=== PATIENT | female | born 1965 | race Caucasian/White ===

== ENCOUNTER 2018-11-15 02:43 | Emergency (ER) | payer OTHER ==
[~2018-11-15] VITALS: Ht 162.6 cm; Wt 77.1 kg
--- NOTE | 2018-11-15 03:09 | NUR ---
Dr. Lin at bedside for MSE.
[2018-11-15] MEDS ORDERED: MORPHINE SULFATE 4 MG/1 ML DISP.SYRIN IM ONE ×2 (03:15→04:45)
[2018-11-15] MEDS ORDERED: ONDANSETRON ODT 4 MG TAB.RAPDIS SL ONE (03:15)
[2018-11-15] MEDS ORDERED: AMOXICILLIN TRIHYDRATE 250 MG CAPSULE PO ONE (03:15)
[2018-11-15] MEDS ORDERED: AMOXICILLIN TRIHYDRATE 250 MG CAPSULE ONE (03:16)
[2018-11-15] MEDS ORDERED: MORPHINE SULFATE 4 MG/1 ML DISP.SYRIN ONE ×2 (03:17→04:35)
[2018-11-15] MEDS ORDERED: ONDANSETRON ODT 4 MG TAB.RAPDIS ONE (03:17)
[2018-11-15] MEDS ORDERED: CLONIDINE HCL 0.2 MG TABLET ONE (03:58)
[2018-11-15] MEDS ORDERED: CLONIDINE HCL 0.2 MG TABLET PO ONE (04:00)
--- NOTE | 2018-11-15 04:00 | NUR ---
Pt crying, states she's still in a lot of pain, blood pressure is still high 198/136. MD notified.
--- NOTE | 2018-11-15 05:37 | NUR ---
Patient discharged to home in stable conditon. Written and verbal after care instructions given. Patient verbalizes understanding of instructions. Patient ambulated out of ER with steady gait, no acute signs of distress, VSS, all belongings taken, to be driven home by son via private vehicle.
[2018-11-15 05:38] VITALS: BP 174/125
== END 2018-11-15 05:38 | disposition home or self-care (01) ==
LOC: ER 02:50
DX: K08.89 Other specified disorders of teeth and supporting structures (principal); I10 Essential (primary) hypertension; F17.200 Nicotine dependence, unspecified, uncomplicated; Z88.6 Allergy status to analgesic agent
CPT/HCPCS: 96372 ×2; 99284; J2270 ×2; A4663; Q0162

== ENCOUNTER 2020-01-07 03:29 | Emergency (ER) | payer OTHER ==
[~2020-01-07] VITALS: Ht 165.1 cm; Wt 77.1 kg
--- NOTE | 2020-01-07 03:50 | NUR ---
Patient ambulating with steady gait. A&O x4. c/o headache 10/10 on the pain scale. pain does not radiate per patient. Patient was seen at [facility] for flu like symptoms and DELGADO. patient received morphine and ativan with little to no help per patient. Breathing even and unlabored. Denies any SOB. Speech is clear and able to make needs known / follow commands. Denies any / GI distress
--- NOTE | 2020-01-07 03:55 | NUR ---
Dr. Wallace at bedside for MSE
[2020-01-07] MEDS ORDERED: HYDROMORPHONE 1 MG/1 ML DISP.SYRIN IM ONE (04:00)
[2020-01-07] MEDS ORDERED: ONDANSETRON 4 MG/2 ML VIAL IM ONE (04:00)
[2020-01-07] MEDS ORDERED: ONDANSETRON 4 MG/2 ML VIAL ONE (04:04)
[2020-01-07] MEDS ORDERED: HYDROMORPHONE 2 MG/1 ML DISP.SYRIN ONE (04:04)
--- NOTE | 2020-01-07 04:15 | NUR ---
Patient discharged to home in stable conditon. Written and verbal after care instructions given. Patient verbalizes understanding of instructions. Patient ambulating with steady gait. Son at bedside to drive patient home
[2020-01-07 04:26] VITALS: BP 136/89
[2020-01-07] MEDS ORDERED: AZIT100S PO (09:46)
[2020-01-07] MEDS ORDERED: METH4TAB3 PO (09:46)
[2020-01-07] MEDS ORDERED: AZIT250T13 PO (09:46)
[2020-01-07] MEDS ORDERED: ALBU8HFA4 (09:46)
[2020-01-07] MEDS ORDERED: OXYC-128 PO (09:47)
[2020-01-07] MEDS ORDERED: BENZ-13 PO (09:47)
[2020-01-07] MEDS ORDERED: ONDA4TAB5 PO (09:47)
[2020-01-10] MEDS ORDERED: LISI10TA5 PO (17:34)
[2020-01-11] MEDS ORDERED: LISI-603 PO (10:56)
[2020-01-11] MEDS ORDERED: AZIT500T PO (10:56)
[2020-01-11] MEDS ORDERED: AMOX875T2 PO (10:56)
[2020-01-11] MEDS ORDERED: ALBU18HF2 INH (10:56)
[2020-01-11] MEDS ORDERED: PRED20TA PO (10:56)
== END 2020-01-07 04:15 | disposition home or self-care (01) ==
LOC: ER 03:32
DX: R51 Headache (principal); Z88.6 Allergy status to analgesic agent; F17.200 Nicotine dependence, unspecified, uncomplicated
CPT/HCPCS: 96372 ×2; 99284; J1170; J2405; A4663

== ENCOUNTER 2020-01-07 09:38 | Emergency (ER) | payer OTHER ==
[~2020-01-07] VITALS: Ht 165.1 cm; Wt 77.1 kg
[2020-01-07] MEDS ORDERED: AZIT250T13 PO (09:46)
[2020-01-07] MEDS ORDERED: METH4TAB3 PO (09:46)
[2020-01-07] MEDS ORDERED: AZIT100S PO (09:46)
[2020-01-07] MEDS ORDERED: ALBU8HFA4 (09:46)
[2020-01-07] MEDS ORDERED: ONDA4TAB5 PO (09:47)
[2020-01-07] MEDS ORDERED: OXYC-128 PO (09:47)
[2020-01-07] MEDS ORDERED: BENZ-13 PO (09:47)
--- NOTE | 2020-01-07 09:54 | NUR ---
PATIENT ON A MONITOR. SHE IS AWAKE AND ALERT. SHE IS NAUSEATED AND STATES SHE HAS A HEADACHE. SHE HAS A FREQUENT COUGH.
[2020-01-07] MEDS ORDERED: ALBUTEROL SULFATE 2.5 MG/3 ML NEBU ONE (10:28)
[2020-01-07] MEDS ORDERED: diphenhydrAMINE 50 MG/1 ML VIAL IV ONE (10:30)
[2020-01-07] MEDS ORDERED: IV NORMAL SALINE 1000 ML BAG IV ONE (10:30)
[2020-01-07] MEDS ORDERED: CEFTRIAXONE 1 G in IV DEXTROSE 5% 50 ML IV ONE (10:30)
[2020-01-07] MEDS ORDERED: PROCHLORPERAZINE EDISYLATE 10 MG/2 ML VIAL IV ONE (10:30)
[2020-01-07] MEDS ORDERED: ALBUTEROL SULFATE 2.5 MG/3 ML NEBU NEB ONE (10:30)
[2020-01-07 10:37] LABS: BASOPHILS # (AUTO) 0.1 K/uL (0.0-8.0); BASOPHILS % (AUTO) 1.3 % (0.0-2.0); EOSINOPHILS % (AUTO) 0.1 % (0.0-7.0); HEMATOCRIT 32.5 % (31.2-41.9); HEMOGLOBIN 10.3 g/dL (10.9-14.3); LYMPHOCYTES # (AUTO) 0.7 K/uL (20.0-40.0); LYMPHOCYTES % (AUTO) 7.1 % (20.5-51.5); MEAN CORPUSCULAR HEMOGLOBIN 23.5 uug (24.7-32.8); MEAN CORPUSCULAR HGB CONC 32 g/dL (32.3-35.6); MEAN CORPUSCULAR VOLUME 74.4 fL (75.5-95.3); MONOCYTES # (AUTO) 0.3 K/uL (2.0-10.0); MONOCYTES % (AUTO) 3.4 % (0.0-11.0); NEUTROPHILS # (AUTO) 8.5 K/uL (1.8-8.9); NEUTROPHILS % (AUTO) 88.1 % (38.5-71.5); PLATELET COUNT (AUTO) 307 K/uL (179-408); RED BLOOD CELL COUNT(AUTO) 4.36 MIL/uL (3.63-4.92); WHITE BLOOD COUNT (AUTO) 9.6 K/uL (3.8-11.8)
[2020-01-07] MEDS ORDERED: PROCHLORPERAZINE EDISYLATE 10 MG/2 ML VIAL ONE (10:37)
[2020-01-07] MEDS ORDERED: CEFTRIAXONE /D5W 50ML IVPB **ER PYXIS IV ONE (10:38)
[2020-01-07] MEDS ORDERED: diphenhydrAMINE 50 MG/1 ML VIAL ONE (10:38)
[2020-01-07 10:50] LABS: CREATININE 0.9 mg/dL (0.6-1.3); POTASSIUM 4.5 mmol/L (3.5-5.1)
[2020-01-07 11:02] LABS: BILIRUBIN,DIRECT 0.1 mg/dL (0.0-0.2); BILIRUBIN,TOTAL 0.2 mg/dL (0.2-1.0); TOTAL PROTEIN, SERUM 8.7 g/dL (6.4-8.2)
--- NOTE | 2020-01-07 11:24 | NUR ---
PATIENT IS SLEEPY BUT [place]. NO COUGHING OR NAUSEA AT THIS MOMENT,
--- NOTE | 2020-01-07 12:10 | NUR ---
PATIENT STATES SHE FEELS BETTER AND COUGHING AND NAUSEA HAVE DIMINISHED.
--- NOTE | 2020-01-07 12:26 | NUR ---
IV removed. Catheter intact and site benign. Pressure and 4x4 gauze applied to site. No bleeding noted.
--- NOTE | 2020-01-07 12:27 | NUR ---
DC AND F/U INSTRUCTIONS GIVEN AND EXPLAINED TO PATIENT AND SON WHO STATE THEY UNDERSTAND ALL INSTRUCTIONS
[2020-01-10] MEDS ORDERED: LISI10TA5 PO (17:34)
[2020-01-11] MEDS ORDERED: AMOX875T2 PO (10:56)
[2020-01-11] MEDS ORDERED: PRED20TA PO (10:56)
[2020-01-11] MEDS ORDERED: LISI-603 PO (10:56)
[2020-01-11] MEDS ORDERED: ALBU18HF2 INH (10:56)
[2020-01-11] MEDS ORDERED: AZIT500T PO (10:56)
== END 2020-01-07 12:32 | disposition home or self-care (01) ==
LOC: ER 09:38
DX: R11.2 Nausea with vomiting, unspecified (principal); J20.9 Acute bronchitis, unspecified; F17.200 Nicotine dependence, unspecified, uncomplicated; Z88.6 Allergy status to analgesic agent; Z79.899 Other long term (current) drug therapy
CPT/HCPCS: 36415; 80048; 80076; 83690; 85025; 87400; 94640; 96361; 96365; 96375; 99283; J0696; J0780; J1200; A4663; J7030

== ENCOUNTER 2020-01-08 23:39 | Inpatient (IN) | payer OTHER ==
[~2020-01-08] VITALS: Ht 165.1 cm; Wt 92.1 kg
--- NOTE | 2020-01-08 23:50 | NUR ---
Patient walked into ER with son c/o SOB,DELGADO and genaralized weakness for several days. Patient wheezing upon arrival. Placed in 4A.
[2020-01-09] MEDS ORDERED: NITROGLYCERIN OINT 1 GM PACKET TP ONE ×2 (00:15→00:21)
[2020-01-09] MEDS ORDERED: FUROSEMIDE 40 MG/4 ML VIAL IV ONE (00:15)
[2020-01-09] MEDS ORDERED: FUROSEMIDE 40 MG/4 ML VIAL ONE (00:21)
[2020-01-09 00:36] LABS: BASOPHILS # (AUTO) 0.1 K/uL (0.0-8.0); BASOPHILS % (AUTO) 0.6 % (0.0-2.0); EOSINOPHILS % (AUTO) 0.2 % (0.0-7.0); HEMATOCRIT 33.1 % (31.2-41.9); HEMOGLOBIN 10.6 g/dL (10.9-14.3); LYMPHOCYTES # (AUTO) 1.7 K/uL (20.0-40.0); LYMPHOCYTES % (AUTO) 11.9 % (20.5-51.5); MEAN CORPUSCULAR HEMOGLOBIN 23.8 uug (24.7-32.8); MEAN CORPUSCULAR HGB CONC 32 g/dL (32.3-35.6); MEAN CORPUSCULAR VOLUME 74.6 fL (75.5-95.3); MONOCYTES % (AUTO) 7.1 % (0.0-11.0); NEUTROPHILS # (AUTO) 11.3 K/uL (1.8-8.9); NEUTROPHILS % (AUTO) 80.2 % (38.5-71.5); PLATELET COUNT (AUTO) 352 K/uL (179-408); RED BLOOD CELL COUNT(AUTO) 4.44 MIL/uL (3.63-4.92); WHITE BLOOD COUNT (AUTO) 14.1 K/uL (3.8-11.8)
[2020-01-09] MEDS ORDERED: MORPHINE SULFATE 4 MG/1 ML DISP.SYRIN IV ONE (00:45)
[2020-01-09] MEDS ORDERED: ONDANSETRON 4 MG/2 ML VIAL IV ONE (00:45)
--- NOTE | 2020-01-09 01:00 | NUR ---
Patient anxious, crying and worried about elevated BP. Allowed patient to vent fears. Closely monitoring BP.
[2020-01-09 01:11] LABS: BAND % (MANUAL) 3 % (0-10); BASOPHILS % (MANUAL) 0 % (0-2); EOSINOPHILS % (MANUAL) 3 % (0-8); LYMPHOCYTES % (MANUAL) 7 % (20-40); MONOCYTES % (MANUAL) 7 % (2-10); NEUTROPHILS % (MANUAL) 80 % (42-75)
[2020-01-09] MEDS ORDERED: hydrALAZINE HCL 20 MG/1 ML VIAL ONE (01:13)
[2020-01-09] MEDS ORDERED: MORPHINE SULFATE 4 MG/1 ML DISP.SYRIN ONE (01:13)
[2020-01-09] MEDS ORDERED: ONDANSETRON 4 MG/2 ML VIAL ONE (01:13)
[2020-01-09] MEDS ORDERED: hydrALAZINE HCL 20 MG/1 ML VIAL IV ONE (01:15)
--- NOTE | 2020-01-09 02:03 | NUR ---
Called [facility] to chance Barrett NP.
[2020-01-09] MEDS ORDERED: diphenhydrAMINE 50 MG/1 ML VIAL IV ONE (02:15)
[2020-01-09] MEDS ORDERED: METOCLOPRAMIDE HCL 10 MG/2 ML VIAL IV ONE (02:15)
[2020-01-09] MEDS ORDERED: diphenhydrAMINE 50 MG/1 ML VIAL ONE (02:17)
[2020-01-09] MEDS ORDERED: METOCLOPRAMIDE HCL 10 MG/2 ML VIAL ONE (02:17)
[2020-01-09] MEDS ORDERED: ONDANSETRON 4 MG/2 ML VIAL IV PRN ×2 (02:30→08:00)
[2020-01-09] MEDS ORDERED: HYDROCODONE/APAP 5-325MG TABLET PO PRN (02:30)
[2020-01-09] MEDS ORDERED: MAGNESIUM HYDROXIDE 30 ML LIQUID UDC PO PRN (02:30)
[2020-01-09] MEDS ORDERED: ALBUTEROL SULFATE 2.5 MG/3 ML NEBU NEB PRN (02:30)
[2020-01-09] MEDS ORDERED: ACETAMINOPHEN 325 MG TABLET PO PRN (02:30)
[2020-01-09] MEDS ORDERED: CEFTRIAXONE 1 G in IV DEXTROSE 5% 50 ML IV SCH (02:30)
--- NOTE | 2020-01-09 03:20 | NUR ---
Transfered to 3rd floor Tele.
[2020-01-09] MEDS ORDERED: CEFTRIAXONE 1 G VIAL ONE (03:55)
[2020-01-09 04:18] VITALS: BP 150/93
[2020-01-09] MEDS: MORPHINE SULFATE 2 MG/1 ML DISP.SYRIN IV PRN ×2 (04:31→11:00)
[2020-01-09 06:56] LABS: BILIRUBIN,DIRECT 0.1 mg/dL (0.0-0.2); BILIRUBIN,TOTAL 0.3 mg/dL (0.2-1.0); CREATININE 0.9 mg/dL (0.6-1.3); MAGNESIUM 1.8 mg/dL (1.8-2.4); PHOSPHOROUS 3.4 mg/dL (2.5-4.9); POTASSIUM 3.7 mmol/L (3.5-5.1); TOTAL PROTEIN, SERUM 8.4 g/dL (6.4-8.2)
[2020-01-09 06:57] LABS: THYROID STIMULATING HORMONE 1.592 mIU/mL (0.358-3.740)
[2020-01-09 07:06] LABS: BASOPHILS # (AUTO) 0.1 K/uL (0.0-8.0); BASOPHILS % (AUTO) 0.5 % (0.0-2.0); HEMATOCRIT 31.8 % (31.2-41.9); HEMOGLOBIN 9.8 g/dL (10.9-14.3); LYMPHOCYTES % (AUTO) 8.5 % (20.5-51.5); MEAN CORPUSCULAR HEMOGLOBIN 23.2 uug (24.7-32.8); MEAN CORPUSCULAR HGB CONC 31 g/dL (32.3-35.6); MEAN CORPUSCULAR VOLUME 75.2 fL (75.5-95.3); MONOCYTES # (AUTO) 0.4 K/uL (2.0-10.0); MONOCYTES % (AUTO) 3.9 % (0.0-11.0); NEUTROPHILS % (AUTO) 87.1 % (38.5-71.5); PLATELET COUNT (AUTO) 330 K/uL (179-408); RED BLOOD CELL COUNT(AUTO) 4.23 MIL/uL (3.63-4.92); WHITE BLOOD COUNT (AUTO) 11.4 K/uL (3.8-11.8)
[2020-01-09 07:20] LABS: *BILIRUBIN,URIN NEGATIVE (NEGATIVE); *CLARITY,URINE CLOUDY (CLEAR); *COLOR,URINE LIGHT YELLOW (YELLOW); *KETONES,URINE NEGATIVE (NEGATIVE); *UROBILINOGEN,URINE 0.2 E.U./dl (NORMAL); LEUKOCYTE ESTERASE ,URINE NEGATIVE (NEGATIVE); NITRITE, URINE NEGATIVE (NEGATIVE); UGLUCOSE NEGATIVE (NEGATIVE)
[2020-01-09 07:21] LABS: *BLOOD, URINE TRACE (NEGATIVE)
--- NOTE | 2020-01-09 07:30 | NUR ---
AWAKE ALERT AND ORIENTED X3 SITTING UP IN BED CRYING FOR SEVERE HEADACHE. SPOKED WITH SON REGARDING HEQADACHE MEDS FROM HOME AND SAID ONLY DILAUDID HELPS . WILL NOTIFY
[2020-01-09 08:08] LABS: BACTERIA,URINE FEW /HPF (NONE SEEN); MUCUS,URINE FEW /LPF (0-FEW); SQUAMOUS EPITHELIAL CELL,UR MODERATE /HPF (NONE SEEN); URINE AMORPHOUS PHOSPHATES MODERATE /HPF; WBC,URINE 0-3 /HPF (0-3)
--- NOTE | 2020-01-09 09:47 | NUR ---
SPOKED WITH Mike GALVEZ AND SAID WILL FOLLOW-UP PATIENT
[2020-01-09] MEDS: CLONIDINE HCL 0.1 MG TABLET PO PRN (10:59)
[2020-01-09 11:04] VITALS: BP 178/114
[2020-01-09] MEDS ORDERED: METOCLOPRAMIDE HCL 10 MG/2 ML VIAL IV PRN (11:15)
[2020-01-09] MEDS ORDERED: hydrALAZINE HCL 25 MG TABLET PO PRN (11:45)
[2020-01-09] MEDS: LORAZEPAM 1 MG TABLET PO PRN ×2 (12:10→23:44)
[2020-01-09] MEDS: LISINOPRIL 10 MG TABLET PO SCH (12:11)
--- NOTE | 2020-01-09 14:51 | NUR ---
Court Recording Monitor Consultation: 11:00am: This SW met with patient, who was in bed in her assigned hospital room. Patient is a 54 year old female, who has had multiple visits to both the [facility] and [facility] emergency rooms this past week for headache and bronchitis. Patient was on the phone with her mother when this SW entered the room, presents tearful, yet receptive to meeting with this SW. Patient is oriented x 4. Patient states that she currently has a severe headache. Patient states that she lives in an apartment with her mother and her children (Keenan, 24 year old son; and Brandon, 22 year old daughter). Patient stated that she is independent with all ADL's and IADL's, and that she assists her mother with her IADL's too (patient states that patient's mother is independent with basic ADL's). Patient's psychosocial needs were explored by this SW. Patient stated that she recently sought out mental health services at [facility] and was diagnosed with Depression and PTSD. Patient stated that upon discharge, she plan on attending weekly support group at [facility]. SW commended the patient for seeking help. SW also provided patient with education on some of the other services available at [facility], such as individual counseling and psychiatric services for medication evaluation, and patient expressed gratitude to this SW for educating her on these additional services that can be available to her at [facility]. SW screened for SI, but patient denied any past or current SI. Discharge plans discussed with the patient, and patient stated that she plans on returning home after current hospitalization. Towards the end of this interview, patient's physician Drew Andrews NP, arrived to meet with the patient. SW thanked patient for her time, and informed the patient that SW will be available to her if she has any further questions/concerns. Patient expressed understanding. SW also informed the patient that case management would be assisting her with all discharge planning needs. Patient expressed understanding. No further SS interventions needed at this time, however SW will be available if needed.
[2020-01-09] MEDS: HYDROMORPHONE HCL 2 MG TABLET PO PRN ×2 (15:02→20:34)
[2020-01-09 15:22] VITALS: BP 140/97
[2020-01-09] MEDS: AZITHROMYCIN 250 MG TABLET PO SCH (16:56)
[2020-01-09] MEDS ORDERED: GUAIFENESIN/DEXTROMETHORPHAN 5 ML UDC PO PRN (20:15)
[2020-01-09 20:28] VITALS: BP 145/90
[2020-01-09] MEDS: FAMOTIDINE 20 MG TABLET PO SCH (20:30)
[2020-01-10] MEDS: HYDROMORPHONE HCL 2 MG TABLET PO PRN ×4 (01:00→21:23)
[2020-01-10] MEDS: CEFTRIAXONE 1 G in IV DEXTROSE 5% 50 ML IV SCH (04:47)
[2020-01-10 05:03] VITALS: BP 136/81
[2020-01-10 07:04] LABS: BASOPHILS # (AUTO) 0.1 K/uL (0.0-8.0); BASOPHILS % (AUTO) 1.4 % (0.0-2.0); EOSINOPHILS # (AUTO) 0.1 K/uL (0.0-0.7); EOSINOPHILS % (AUTO) 0.8 % (0.0-7.0); HEMATOCRIT 32.1 % (31.2-41.9); HEMOGLOBIN 10.1 g/dL (10.9-14.3); LYMPHOCYTES # (AUTO) 3.4 K/uL (20.0-40.0); LYMPHOCYTES % (AUTO) 40.6 % (20.5-51.5); MEAN CORPUSCULAR HEMOGLOBIN 23.4 uug (24.7-32.8); MEAN CORPUSCULAR HGB CONC 31 g/dL (32.3-35.6); MEAN CORPUSCULAR VOLUME 74.4 fL (75.5-95.3); MONOCYTES # (AUTO) 0.6 K/uL (2.0-10.0); MONOCYTES % (AUTO) 7.6 % (0.0-11.0); NEUTROPHILS # (AUTO) 4.2 K/uL (1.8-8.9); NEUTROPHILS % (AUTO) 49.6 % (38.5-71.5); PLATELET COUNT (AUTO) 341 K/uL (179-408); RED BLOOD CELL COUNT(AUTO) 4.32 MIL/uL (3.63-4.92); WHITE BLOOD COUNT (AUTO) 8.4 K/uL (3.8-11.8)
--- NOTE | 2020-01-10 07:20 | NUR ---
RECEIVED PATIENT IN BED, AOX4. DENIES PAIN OR SOB AT THIS TIME. IV LINE INTACT AND FLUSHED. SAFETY AND FALL PREVENTION IN PLACE. CALL LIGHT IN REACH. BED IN LOW POSITION AND LOCKED. WILL CONTINUE TO MONITOR.
[2020-01-10 07:27] LABS: CREATININE 0.8 mg/dL (0.6-1.3); POTASSIUM 3.4 mmol/L (3.5-5.1)
[2020-01-10] MEDS: FAMOTIDINE 20 MG TABLET PO SCH ×2 (08:25→21:22)
[2020-01-10] MEDS: LISINOPRIL 10 MG TABLET PO SCH (08:26)
[2020-01-10] MEDS: BENZONATATE 100 MG CAPSULE PO SCH ×3 (10:23→21:22)
[2020-01-10] MEDS ORDERED: methylPREDNISolone SOD SUCC 125 MG/2 ML VIAL IV ONE (11:00)
[2020-01-10 11:48] VITALS: BP 140/98
[2020-01-10 11:59] LABS: BAND % (MANUAL) 1 % (0-10); EOSINOPHILS % (MANUAL) 2 % (0-8); LYMPHOCYTES % (MANUAL) 41 % (20-40); MONOCYTES % (MANUAL) 6 % (2-10); NEUTROPHILS % (MANUAL) 50 % (42-75)
[2020-01-10] MEDS: ALBUTEROL SULFATE 2.5 MG/3 ML NEBU NEB SCH ×3 (12:20→19:39)
[2020-01-10] MEDS: IPRATROPIUM BROMIDE 0.5 MG/2.5 ML NEBU NEB SCH ×3 (12:20→19:39)
[2020-01-10] MEDS ORDERED: methylPREDNISolone SOD SUCC 40 MG/ML VIAL IV SCH (14:00)
[2020-01-10] MEDS ORDERED: POTASSIUM CHLORIDE 20 MEQ TAB.PRT.SR PO ONE (15:15)
[2020-01-10 15:43] VITALS: BP 184/112
[2020-01-10] MEDS: AZITHROMYCIN 250 MG TABLET PO SCH (16:56)
--- NOTE | 2020-01-10 18:46 | NUR ---
PATIENT IN BED, AOX4. COMPLAINS OF PAIN, MEDICATIONS GIVEN ORDERED. IV LINE INTACT AND FLUSHED. SAFETY AND FALL PREVENTION IN PLACE. CALL LIGHT IN REACH. BED IN LOW POSITION AND LOCKED. WILL REPORT TO MOLD INSERT CHANGER.
[2020-01-10] MEDS: methylPREDNISolone SOD SUCC 40 MG/ML VIAL IV SCH (19:23)
[2020-01-10] MEDS ORDERED: BENZOCAINE/MENTH/CETYLPYRD LOZENGE MM PRN (20:45)
[2020-01-10] MEDS ORDERED: diphenhydrAMINE 50 MG/1 ML VIAL IV PRN (20:45)
[2020-01-10] MEDS: METOPROLOL TARTRATE 25 MG TABLET PO SCH (21:22)
[2020-01-10] MEDS: CLONIDINE HCL 0.1 MG TABLET PO PRN (21:23)
[2020-01-10 21:29] VITALS: BP 193/123
--- NOTE | 2020-01-11 | NUR ---
BP rechecked: 150/79 after Clonidine 0.1mg given at bedtime. Pt is also sleeping well, with no signs of pain at this time.
[2020-01-11 04:47] VITALS: BP 181/113
[2020-01-11] MEDS: CEFTRIAXONE 1 G in IV DEXTROSE 5% 50 ML IV SCH (05:05)
[2020-01-11] MEDS: HYDROMORPHONE HCL 2 MG TABLET PO PRN ×2 (05:05→09:12)
[2020-01-11] MEDS: methylPREDNISolone SOD SUCC 40 MG/ML VIAL IV SCH (05:05)
[2020-01-11] MEDS: BENZONATATE 100 MG CAPSULE PO SCH (05:05)
[2020-01-11] MEDS: CLONIDINE HCL 0.1 MG TABLET PO PRN (05:05)
--- NOTE | 2020-01-11 05:55 | NUR ---
Pt slept well through the night after one time order of Benadryl and pain is managed adequately with Dilaudid 2mg, given with other medications. However, BP elevated at 181/113 around 0400 AM. Clonidine 0.1mg given, along with Dilaudid 2mg. Rechecked at this time, 179/102. Non pharmacological methods given. Will recheck again in 30 minutes. Pt denies any pain or discomfort.
[2020-01-11 05:56] LABS: BASOPHILS % (AUTO) 0.3 % (0.0-2.0); HEMATOCRIT 33.1 % (31.2-41.9); HEMOGLOBIN 10.4 g/dL (10.9-14.3); LYMPHOCYTES # (AUTO) 1.7 K/uL (20.0-40.0); LYMPHOCYTES % (AUTO) 12.8 % (20.5-51.5); MEAN CORPUSCULAR HEMOGLOBIN 23.4 uug (24.7-32.8); MEAN CORPUSCULAR HGB CONC 32 g/dL (32.3-35.6); MEAN CORPUSCULAR VOLUME 74.3 fL (75.5-95.3); MONOCYTES # (AUTO) 0.4 K/uL (2.0-10.0); MONOCYTES % (AUTO) 3.2 % (0.0-11.0); NEUTROPHILS % (AUTO) 83.7 % (38.5-71.5); PLATELET COUNT (AUTO) 386 K/uL (179-408); RED BLOOD CELL COUNT(AUTO) 4.45 MIL/uL (3.63-4.92); WHITE BLOOD COUNT (AUTO) 13.2 K/uL (3.8-11.8)
[2020-01-11 05:58] VITALS: BP 179/102
[2020-01-11 06:18] LABS: POTASSIUM 3.8 mmol/L (3.5-5.1)
[2020-01-11 08:07] LABS: LYMPHOCYTES % (MANUAL) 14 % (20-40); MONOCYTES % (MANUAL) 2 % (2-10); NEUTROPHILS % (MANUAL) 84 % (42-75)
[2020-01-11] MEDS: IPRATROPIUM BROMIDE 0.5 MG/2.5 ML NEBU NEB SCH (08:32)
[2020-01-11] MEDS: LEVALBUTEROL HCL NEB 0.63 MG/3 ML NEBU NEB SCH ×2 (08:32→12:33)
[2020-01-11] MEDS: METOPROLOL TARTRATE 25 MG TABLET PO SCH (08:50)
[2020-01-11] MEDS: FAMOTIDINE 20 MG TABLET PO SCH (08:50)
[2020-01-11] MEDS: LISINOPRIL 10 MG TABLET PO SCH (08:51)
[2020-01-11 11:45] VITALS: BP 145/96
--- NOTE | 2020-01-11 13:00 | NUR ---
RECEIVED DISCHARGE ORDER TO HOME VIA PRIVATE CAR WITH SON, DISCHARGE INSTRUCTION GIVEN AND VERBALIZED UNDERSTANDING. PRESCRIBE MEDICATION GIVEN WITH EXPLANATION PROVIDED. IV AND ID BAND REMOVED. BELONGINGS ACCOUNTED FOR AND SIGNED. NO SOB AND NO C/O PAIN NOTED AT THIS TIME. QUESTIONS AND CONCERNS ADDRESSED
[2020-01-11] MEDS ORDERED: IPRATROPIUM BROMIDE 0.5 MG/2.5 ML NEBU NEB SCH (13:30)
== END 2020-01-11 13:00 | disposition home or self-care (01) | DRG 199 ==
LOC: ER 23:43 → TELE3 01-09 02:15 → MEDSURG3 01-09 11:40
PROVIDERS: ADMIT Nurse Practitioner Acute Care; ATTEND Nurse Practitioner Acute Care
DX: I16.9 Hypertensive crisis, unspecified (principal); I11.9 Hypertensive heart disease without heart failure; J44.0 Chronic obstructive pulmonary disease with (acute) lower respiratory infection; J20.9 Acute bronchitis, unspecified; J44.1 Chronic obstructive pulmonary disease with (acute) exacerbation; G43.909 Migraine, unspecified, not intractable, without status migrainosus; Z87.11 Personal history of peptic ulcer disease; Z83.3 Family history of diabetes mellitus; E66.9 Obesity, unspecified; E86.0 Dehydration; Z86.19 Personal history of other infectious and parasitic diseases; R79.89 Other specified abnormal findings of blood chemistry; F17.210 Nicotine dependence, cigarettes, uncomplicated; F41.9 Anxiety disorder, unspecified; D72.829 Elevated white blood cell count, unspecified; T38.0X5A Adverse effect of glucocorticoids and synthetic analogues, initial encounter
CPT/HCPCS: 36415; 70030-TC; 71045; 83735; 84100; 84443; 85025; 93005; 94640; 94664; A4663; G0378; J0360; J0696; J1200; J1940; J2270; J2405; J2765; J2920; J2930; J3590; J7040; J7060; J7614; Q0144

== ENCOUNTER 2020-01-17 14:09 | Emergency (ER) | payer OTHER ==
[~2020-01-17] VITALS: Ht 165.1 cm; Wt 77.1 kg
[~2020-01-17 14:09] MED LIST: ALBU18HF2 INH; AMOX875T2 PO; AZIT500T PO; LISI-603 PO; PRED20TA PO
--- NOTE | 2020-01-17 14:32 | NUR ---
Patient discharged to home in stable condition. Written and verbal after care instructions given to patient. Patient verbalizes understanding & compliance of instructions.
== END 2020-01-17 14:34 | disposition home or self-care (01) ==
LOC: ER 14:11
DX: R05 Cough (principal); I50.9 Heart failure, unspecified; F17.200 Nicotine dependence, unspecified, uncomplicated; Z88.6 Allergy status to analgesic agent; Z91.018 Allergy to other foods; Z88.8 Allergy status to other drugs, medicaments and biological substances; Z79.899 Other long term (current) drug therapy
CPT/HCPCS: A4663

== ENCOUNTER 2025-07-04 22:13 | Emergency (ER) | payer OTHER ==
[~2025-07-04] VITALS: Ht 165.1 cm; Wt 86.2 kg
[~2025-07-04 22:13] MED LIST changes: -AMOX875T2 PO; -AZIT500T PO; -LISI-603 PO; +LISI20TA30 PO
[2025-07-05] MEDS ORDERED: HYDR-3972 PO
[2025-07-05] MEDS ORDERED: LISI1TAB29 PO
[2025-07-05] MEDS ORDERED: AMLO10TA4 PO
[2025-07-05] MEDS ORDERED: CEPH500C2 PO
[2025-07-05 01:20] VITALS: BP 158/95; O2SAT 98
== END 2025-07-05 00:12 | disposition home or self-care (01) ==
LOC: ER 22:22
DX: I11.0 Hypertensive heart disease with heart failure (principal); I50.9 Heart failure, unspecified; K04.7 Periapical abscess without sinus; F12.90 Cannabis use, unspecified, uncomplicated; F17.200 Nicotine dependence, unspecified, uncomplicated; J44.9 Chronic obstructive pulmonary disease, unspecified; G43.909 Migraine, unspecified, not intractable, without status migrainosus; F17.210 Nicotine dependence, cigarettes, uncomplicated; Z79.52 Long term (current) use of systemic steroids; Z79.899 Other long term (current) drug therapy; Z88.6 Allergy status to analgesic agent; Z88.7 Allergy status to serum and vaccine; Z98.890 Other specified postprocedural states; Z91.148 Patient's other noncompliance with medication regimen for other reason; Z87.09 Personal history of other diseases of the respiratory system; Z87.19 Personal history of other diseases of the digestive system; Z88.8 Allergy status to other drugs, medicaments and biological substances
CPT/HCPCS: A4606; A4663

== ENCOUNTER 2025-08-01 11:12 | Emergency (ER) | payer OTHER ==
[~2025-08-01] VITALS: Ht 165.1 cm; Wt 86.2 kg
[~2025-08-01 11:12] MED LIST changes: +AMLO10TA4 PO; +CEPH500C2 PO; +HYDR-3972 PO; +LISI1TAB29 PO
[2025-08-01] MEDS ORDERED: HYDROMORPHONE 2 MG/1 ML DISP.SYRIN ONE (11:57)
[2025-08-01] MEDS ORDERED: METHOCARBAMOL 500 MG TABLET ONE (11:57)
[2025-08-01] MEDS: HYDROMORPHONE 1 MG/1 ML DISP.SYRIN IM ONE (12:03)
[2025-08-01] MEDS: METHOCARBAMOL 500 MG TABLET PO ONE (12:03)
[2025-08-01 13:30] VITALS: BP 118/89
[2025-08-01] MEDS ORDERED: ONDANSETRON ODT 4 MG TAB.RAPDIS ONE (13:36)
[2025-08-01] MEDS: ONDANSETRON ODT 4 MG TAB.RAPDIS SL ONE (13:37)
[2025-08-01] MEDS ORDERED: ONDA4TAB5 PO (13:43)
[2025-08-01] MEDS ORDERED: HYDR4TAB4 PO (13:43)
[2025-08-01] MEDS ORDERED: METH-807 PO (13:43)
[2025-08-01 15:29] VITALS: BP 118/89; TEMP 98.3; O2SAT 98
== END 2025-08-01 15:30 | disposition home or self-care (01) ==
LOC: ER 11:19
DX: S39.012A Strain of muscle, fascia and tendon of lower back, initial encounter (principal); F17.210 Nicotine dependence, cigarettes, uncomplicated; I11.0 Hypertensive heart disease with heart failure; I50.9 Heart failure, unspecified; Z79.899 Other long term (current) drug therapy; Z87.01 Personal history of pneumonia (recurrent); Z88.6 Allergy status to analgesic agent; Z88.7 Allergy status to serum and vaccine; Z79.52 Long term (current) use of systemic steroids; Z87.19 Personal history of other diseases of the digestive system; Z87.448 Personal history of other diseases of urinary system; Z87.42 Personal history of other diseases of the female genital tract; X58.XXXA Exposure to other specified factors, initial encounter; Y93.89 Activity, other specified; Y92.89 Other specified places as the place of occurrence of the external cause; Y99.8 Other external cause status
CPT/HCPCS: 99285; 72131; 96372; J1171; A4606; A4663; Q0162